=== PATIENT | female | born 1935 | race Caucasian/White ===

== ENCOUNTER 2017-03-03 16:10 | Inpatient (IN) | payer MEDICARE, OTHER ==
[~2017-03-03] VITALS: Ht 170.2 cm; Wt 71.7 kg
[2017-03-03 17:46] LABS: BASOPHILS % (AUTO) 0.5 % (0.0-2.0); EOSINOPHILS # (AUTO) 0.1 /CMM (0.0-0.7); EOSINOPHILS % (AUTO) 2.4 % (0.0-6.0); HEMATOCRIT 38 % (33-45); LYMPHOCYTES # (AUTO) 2.1 /CMM (0.8-4.8); LYMPHOCYTES % (AUTO) 34.2 % (20.0-44.0); MEAN CORPUSCULAR HEMOGLOBIN 34 PG (26.0-33.0); MEAN CORPUSCULAR HGB CONC 34 g/dl (31.0-36.0); MEAN CORPUSCULAR VOLUME 98 fL (82-100); MONOCYTES # (AUTO) 0.7 /CMM (0.1-1.30); MONOCYTES % (AUTO) 10.8 % (2.0-12.0); NEUTROPHILS # (AUTO) 3.3 /CMM (1.8-8.9); NEUTROPHILS % (AUTO) 52.1 % (43.0-81.0); PLATELET COUNT (AUTO) 292 /CMM (150-450); RED BLOOD CELL COUNT(AUTO) 3.87 MIL/uL (4.0-5.2); WHITE BLOOD COUNT (AUTO) 6.2 K/uL (4.3-11.0)
[2017-03-03 17:58] LABS: CALCIUM, SERUM 9.7 mg/dL (8.5-10.1); CARBON DIOXIDE 30 mmol/L (21-32); CHLORIDE 103 mmol/L (98-107); CREATININE 1.4 mg/dL (0.6-1.3); GLUCOSE 122 mg/dL (74-106); POTASSIUM 4.2 mmol/L (3.5-5.1); SODIUM SERUM 139 mmol/L (136-145); UREA NITROGEN, BLOOD 17 mg/dL (7-18)
[2017-03-03 18:02] LABS: ALANINE AMINOTRANSFERASE 13 U/L (12-78); ALBUMIN 3.6 g/dL (3.4-5.0); ALCOHOL, BLOOD < 3 mg/dL (0-0); ALKALINE PHOSPHATASE 91 U/L (46-116); ASPARTATE AMINOTRANSFERASE 17 U/L (15-37); BILIRUBIN,DIRECT 0.1 mg/dL (0.0-0.2); BILIRUBIN,TOTAL 0.4 mg/dL (0.2-1.0); SALICYLATE 0.3 mg/dL (2.8-20.0); TOTAL PROTEIN, SERUM 8.1 g/dL (6.4-8.2)
[2017-03-03 18:03] LABS: ACETAMINOPHEN < 2 ug/ml (10-30)
[2017-03-03 18:10] LABS: INR 0.98 (0.87-1.13); PROTHROMBIN TIME 10.2 SECS (9.5-12.7)
[2017-03-03 18:50] LABS: APPEARANCE,URINE Slightly Cloudy (CLEAR); BILIRUBIN,URINE Negative (NEGATIVE); BLOOD, URINE Negative Ery/uL (NEGATIVE); COLOR,URINE Yellow (YELLOW); KETONES,URINE Negative (NEGATIVE); LEUKOCYTE ESTERASE ,URINE Trace (NEGATIVE); NITRITE, URINE Negative (NEGATIVE); PH,URINE 7.5 (5.0-8.0); PROTEIN,URINE Negative (NEGATIVE); UGLUCOSE Negative (NEGATIVE); UROBILINOGEN,URINE 0.2 EU/dL (0.2)
[2017-03-03 19:01] LABS: BACTERIA,URINE Many /HPF (None Seen); RBC,URINE 0-2 /HPF (0-2); SQUAMOUS EPITHELIAL CELL,UR Few /HPF (None Seen)
[2017-03-03] MEDS ORDERED: BENA20TA2 PO (20:22)
[2017-03-03] MEDS ORDERED: ATOR20TA PO (20:22)
[2017-03-03] MEDS ORDERED: OMEG1CAP13 PO (20:22)
[2017-03-03] MEDS ORDERED: LEVO75TA7 PO (20:22)
[2017-03-03] MEDS ORDERED: DONE5TAB34 PO (20:22)
[2017-03-03] MEDS ORDERED: ASPI-605 PO (20:22)
[2017-03-03] MEDS ORDERED: QUET50TA PO (20:22)
[2017-03-03] MEDS ORDERED: AMLO5TAB2 PO (20:22)
[2017-03-03] MEDS ORDERED: METF500T4 PO (20:22)
[2017-03-03] MEDS ORDERED: FLUO-120 PO (20:22)
[2017-03-03] MEDS ORDERED: RISP1TAB27 PO (21:10)
[2017-03-03 21:23] VITALS: BP 187/99
[2017-03-03] MEDS ORDERED: MAGNESIUM HYDROXIDE 30 ML UDC PO PRN (21:30)
[2017-03-03] MEDS ORDERED: MAG HYDROX/AL HYDROX/SIMETH 30 ML UDC PO PRN (21:30)
[2017-03-03] MEDS ORDERED: ACETAMINOPHEN 325 MG TABLET PO PRN (21:30)
[2017-03-03] MEDS ORDERED: LORAZEPAM 0.5 MG TABLET PO PRN (21:30)
[2017-03-03] MEDS ORDERED: hydrALAZINE HCL 10 MG TABLET ONE (22:25)
[2017-03-03] MEDS ORDERED: hydrALAZINE HCL 10 MG TABLET PO ONE (22:30)
[2017-03-04 08:18] VITALS: BP 150/77
[2017-03-04 15:53] VITALS: BP 146/80
[2017-03-04] MEDS: FLUOXETINE HCL 20 MG CAPSULE PO SCH (16:58)
[2017-03-04 19:41] VITALS: BP 125/49
[2017-03-04] MEDS: QUETIAPINE FUMARATE 25 MG TABLET PO SCH (21:18)
[2017-03-04] MEDS: DONEPEZIL 5 MG TABLET PO SCH (21:20)
[2017-03-05 06:28] LABS: BASOPHILS % (AUTO) 0.3 % (0.0-2.0); EOSINOPHILS # (AUTO) 0.2 /CMM (0.0-0.7); EOSINOPHILS % (AUTO) 2.6 % (0.0-6.0); HEMATOCRIT 37 % (33-45); HEMOGLOBIN 12.5 g/dL (11.5-14.8); LYMPHOCYTES # (AUTO) 2.1 /CMM (0.8-4.8); LYMPHOCYTES % (AUTO) 27.1 % (20.0-44.0); MEAN CORPUSCULAR HEMOGLOBIN 34 PG (26.0-33.0); MEAN CORPUSCULAR HGB CONC 34 g/dl (31.0-36.0); MEAN CORPUSCULAR VOLUME 99 fL (82-100); MONOCYTES # (AUTO) 0.6 /CMM (0.1-1.30); MONOCYTES % (AUTO) 7.6 % (2.0-12.0); NEUTROPHILS # (AUTO) 4.9 /CMM (1.8-8.9); NEUTROPHILS % (AUTO) 62.4 % (43.0-81.0); PLATELET COUNT (AUTO) 266 /CMM (150-450); RDW COEFFICIENT OF VARIATION 14.2 (11.5-15.0); RED BLOOD CELL COUNT(AUTO) 3.73 MIL/uL (4.0-5.2); WHITE BLOOD COUNT (AUTO) 7.9 K/uL (4.3-11.0)
[2017-03-05 06:44] LABS: CHOLESTEROL 166 mg/dL (<200); HDL CHOLESTEROL 77 mg/dL (40-60); LDL 77 mg/dL (0-99); TRIGLYCERIDES 70 mg/dL (30-150)
[2017-03-05 06:46] LABS: ALANINE AMINOTRANSFERASE 18 U/L (12-78); ALBUMIN 3.1 g/dL (3.4-5.0); ALKALINE PHOSPHATASE 72 U/L (46-116); ASPARTATE AMINOTRANSFERASE 18 U/L (15-37); BILIRUBIN,TOTAL 0.4 mg/dL (0.2-1.0); CALCIUM, SERUM 9.4 mg/dL (8.5-10.1); CARBON DIOXIDE 30 mmol/L (21-32); CHLORIDE 106 mmol/L (98-107); CREATININE 0.7 mg/dL (0.6-1.3); GLUCOSE 126 mg/dL (74-106); POTASSIUM 4.2 mmol/L (3.5-5.1); SODIUM SERUM 140 mmol/L (136-145); TOTAL PROTEIN, SERUM 6.9 g/dL (6.4-8.2); UREA NITROGEN, BLOOD 27 mg/dL (7-18)
[2017-03-05 06:59] LABS: VALPROIC ACID < 3 ug/mL (50-100)
[2017-03-05 08:11] VITALS: BP 125/72
[2017-03-05] MEDS ORDERED: FLUOXETINE HCL 20 MG CAPSULE PO SCH (09:00)
[2017-03-05] MEDS: FLUOXETINE HCL 20 MG CAPSULE PO SCH (09:00)
[2017-03-05] MEDS: ATORVASTATIN 10 MG TABLET PO SCH (09:01)
[2017-03-05] MEDS: ASPIRIN EC 81 MG TABLET.DR PO SCH (09:01)
[2017-03-05] MEDS: AMLODIPINE BESYLATE 5 MG TABLET PO SCH (09:02)
[2017-03-05] MEDS: BENAZEPRIL HCL 20 MG TABLET PO SCH (09:02)
[2017-03-05] MEDS: LEVOTHYROXINE SODIUM 75 MCG TABLET PO SCH (09:04)
[2017-03-05] MEDS: METFORMIN 500 MG TABLET PO SCH (09:43)
[2017-03-05 15:49] VITALS: BP 133/99
[2017-03-05] MEDS: QUETIAPINE FUMARATE 25 MG TABLET PO SCH (17:11)
[2017-03-05 20:52] VITALS: BP 96/57
[2017-03-05] MEDS: DONEPEZIL 5 MG TABLET PO SCH (21:54)
[2017-03-06 07:18] LABS: APPEARANCE,URINE CLOUDY (CLEAR); BILIRUBIN,URINE NEGATIVE (NEGATIVE); BLOOD, URINE NEGATIVE Ery/uL (NEGATIVE); COLOR,URINE YELLOW (YELLOW); KETONES,URINE NEGATIVE (NEGATIVE); LEUKOCYTE ESTERASE ,URINE 1+ (NEGATIVE); NITRITE, URINE POSITIVE (NEGATIVE); PH,URINE 7.5 (5.0-8.0); PROTEIN,URINE NEGATIVE (NEGATIVE); UGLUCOSE NEGATIVE (NEGATIVE); UROBILINOGEN,URINE 0.2 EU/dL (0.2)
[2017-03-06 08:00] VITALS: BP 138/68
[2017-03-06] MEDS: ATORVASTATIN 10 MG TABLET PO SCH (08:02)
[2017-03-06] MEDS: AMLODIPINE BESYLATE 5 MG TABLET PO SCH (08:03)
[2017-03-06] MEDS: METFORMIN 500 MG TABLET PO SCH (08:03)
[2017-03-06] MEDS: BENAZEPRIL HCL 20 MG TABLET PO SCH (08:03)
[2017-03-06] MEDS: LEVOTHYROXINE SODIUM 75 MCG TABLET PO SCH (08:04)
[2017-03-06] MEDS: FLUOXETINE HCL 20 MG CAPSULE PO SCH (08:04)
[2017-03-06] MEDS: ASPIRIN EC 81 MG TABLET.DR PO SCH (08:04)
[2017-03-06 09:00] LABS: RBC,URINE NONE SEEN /HPF (0-2)
[2017-03-06 09:01] LABS: BACTERIA,URINE 2+ /HPF (None Seen); SQUAMOUS EPITHELIAL CELL,UR Few /HPF (None Seen); YEAST,URINE None Seen /HPF (None Seen)
[2017-03-06 16:08] VITALS: BP 138/74
[2017-03-06] MEDS: QUETIAPINE FUMARATE 25 MG TABLET PO SCH (17:03)
[2017-03-06 19:45] VITALS: BP 128/57
[2017-03-06] MEDS: DONEPEZIL 5 MG TABLET PO SCH (21:15)
[2017-03-07 08:00] VITALS: BP 114/62
[2017-03-07] MEDS: LEVOTHYROXINE SODIUM 75 MCG TABLET PO SCH (09:20)
[2017-03-07] MEDS: ATORVASTATIN 10 MG TABLET PO SCH (09:20)
[2017-03-07] MEDS: METFORMIN 500 MG TABLET PO SCH (09:20)
[2017-03-07] MEDS: BENAZEPRIL HCL 20 MG TABLET PO SCH (09:21)
[2017-03-07] MEDS: AMLODIPINE BESYLATE 5 MG TABLET PO SCH (09:21)
[2017-03-07] MEDS: FLUOXETINE HCL 20 MG CAPSULE PO SCH (09:21)
[2017-03-07] MEDS: ASPIRIN EC 81 MG TABLET.DR PO SCH (09:21)
[2017-03-07 16:00] VITALS: BP 110/55
[2017-03-07] MEDS: QUETIAPINE FUMARATE 25 MG TABLET PO SCH (17:38)
[2017-03-07 20:00] VITALS: BP 107/53
[2017-03-07] MEDS ORDERED: IV NS 0.9% 500 ML IV ONE (22:00)
[2017-03-08 08:00] VITALS: BP 105/57
[2017-03-08 08:07] VITALS: BP 105/57
[2017-03-08] MEDS: METFORMIN 500 MG TABLET PO SCH (08:47)
[2017-03-08] MEDS: FLUOXETINE HCL 20 MG CAPSULE PO SCH (08:47)
[2017-03-08] MEDS: ASPIRIN EC 81 MG TABLET.DR PO SCH (08:48)
[2017-03-08] MEDS: ATORVASTATIN 10 MG TABLET PO SCH (08:48)
[2017-03-08] MEDS: LEVOTHYROXINE SODIUM 75 MCG TABLET PO SCH (08:48)
[2017-03-08] MEDS: BENAZEPRIL HCL 20 MG TABLET PO SCH (08:49)
[2017-03-08] MEDS: AMLODIPINE BESYLATE 5 MG TABLET PO SCH (08:49)
[2017-03-08 16:06] VITALS: BP 113/66
[2017-03-08] MEDS: QUETIAPINE FUMARATE 25 MG TABLET PO SCH (17:24)
[2017-03-08 20:00] VITALS: BP 103/58
[2017-03-08] MEDS: DONEPEZIL 5 MG TABLET PO SCH ×2 (21:46)
[2017-03-08] MEDS ORDERED: LEVOFLOXACIN (500MG) 500 MG TABLET PO SCH (22:00)
[2017-03-08] MEDS: TEMAZEPAM 7.5 MG CAPSULE PO PRN (22:12)
[2017-03-09 08:04] VITALS: BP 141/87
[2017-03-09] MEDS: BENAZEPRIL HCL 20 MG TABLET PO SCH ×2 (09:00→12:38)
[2017-03-09] MEDS: AMLODIPINE BESYLATE 5 MG TABLET PO SCH ×2 (09:00→12:38)
[2017-03-09] MEDS: LEVOTHYROXINE SODIUM 75 MCG TABLET PO SCH (09:18)
[2017-03-09] MEDS: METFORMIN 500 MG TABLET PO SCH (09:19)
[2017-03-09] MEDS: ATORVASTATIN 10 MG TABLET PO SCH (09:19)
[2017-03-09] MEDS: ASPIRIN EC 81 MG TABLET.DR PO SCH (09:19)
[2017-03-09] MEDS: FLUOXETINE HCL 20 MG CAPSULE PO SCH (09:19)
[2017-03-09] MEDS: CEPHALEXIN MONOHYDRATE 250 MG CAPSULE PO SCH ×2 (12:36→17:42)
[2017-03-09] MEDS: GUAIFENESIN/D-METHORPHAN HB 5 ML UDC PO PRN ×2 (12:36→17:44)
[2017-03-09 16:04] VITALS: BP 111/66
[2017-03-09] MEDS: QUETIAPINE FUMARATE 25 MG TABLET PO SCH (17:42)
[2017-03-09 20:00] VITALS: BP 103/50
[2017-03-09] MEDS: DONEPEZIL 5 MG TABLET PO SCH (21:37)
[2017-03-09] MEDS: TEMAZEPAM 7.5 MG CAPSULE PO PRN (21:38)
[2017-03-09] MEDS ORDERED: LEVOFLOXACIN (250MG) 250 MG TABLET PO SCH (22:00)
[2017-03-10] MEDS: CEPHALEXIN MONOHYDRATE 250 MG CAPSULE PO SCH ×4 (00:43→17:44)
[2017-03-10 08:00] VITALS: BP 111/63
[2017-03-10] MEDS: FLUOXETINE HCL 20 MG CAPSULE PO SCH (08:44)
[2017-03-10] MEDS: METFORMIN 500 MG TABLET PO SCH (08:44)
[2017-03-10] MEDS: LEVOTHYROXINE SODIUM 75 MCG TABLET PO SCH (08:44)
[2017-03-10] MEDS: ATORVASTATIN 10 MG TABLET PO SCH (08:44)
[2017-03-10] MEDS: ASPIRIN EC 81 MG TABLET.DR PO SCH (08:44)
[2017-03-10] MEDS: BENAZEPRIL HCL 20 MG TABLET PO SCH (08:45)
[2017-03-10] MEDS: AMLODIPINE BESYLATE 5 MG TABLET PO SCH (08:45)
[2017-03-10 16:06] VITALS: BP 100/69
[2017-03-10] MEDS: QUETIAPINE FUMARATE 25 MG TABLET PO SCH (17:44)
[2017-03-10 19:46] VITALS: BP 90/53
[2017-03-10] MEDS: DONEPEZIL 5 MG TABLET PO SCH (21:11)
[2017-03-11 03:41] VITALS: BP 104/61
[2017-03-11] MEDS: CEPHALEXIN MONOHYDRATE 250 MG CAPSULE PO SCH ×2 (06:00)
[2017-03-11 08:00] VITALS: BP 114/64
[2017-03-11] MEDS: ASPIRIN EC 81 MG TABLET.DR PO SCH (09:11)
[2017-03-11] MEDS: METFORMIN 500 MG TABLET PO SCH (09:11)
[2017-03-11] MEDS: LEVOTHYROXINE SODIUM 75 MCG TABLET PO SCH (09:11)
[2017-03-11] MEDS: FLUOXETINE HCL 20 MG CAPSULE PO SCH (09:11)
[2017-03-11] MEDS: CEPHALEXIN MONOHYDRATE 500 MG CAPSULE PO SCH ×3 (09:11→23:53)
[2017-03-11] MEDS: ATORVASTATIN 10 MG TABLET PO SCH (09:11)
[2017-03-11] MEDS: AMLODIPINE BESYLATE 5 MG TABLET PO SCH (09:12)
[2017-03-11] MEDS: BENAZEPRIL HCL 20 MG TABLET PO SCH (09:12)
[2017-03-11 16:00] VITALS: BP 144/78
[2017-03-11] MEDS: QUETIAPINE FUMARATE 25 MG TABLET PO SCH (17:09)
[2017-03-11] MEDS: DONEPEZIL 5 MG TABLET PO SCH (21:11)
[2017-03-11 21:44] VITALS: BP 108/63
[2017-03-12] MEDS ORDERED: CEPHALEXIN MONOHYDRATE 500 MG CAPSULE PO ONE (05:37)
[2017-03-12] MEDS: CEPHALEXIN MONOHYDRATE 500 MG CAPSULE PO SCH ×4 (05:53→23:02)
[2017-03-12 08:00] VITALS: BP 138/73
[2017-03-12] MEDS: FLUOXETINE HCL 20 MG CAPSULE PO SCH (08:31)
[2017-03-12] MEDS: AMLODIPINE BESYLATE 5 MG TABLET PO SCH (08:31)
[2017-03-12] MEDS: METFORMIN 500 MG TABLET PO SCH (08:31)
[2017-03-12] MEDS: LEVOTHYROXINE SODIUM 75 MCG TABLET PO SCH (08:31)
[2017-03-12] MEDS: ASPIRIN EC 81 MG TABLET.DR PO SCH (08:31)
[2017-03-12] MEDS: BENAZEPRIL HCL 20 MG TABLET PO SCH (08:32)
[2017-03-12] MEDS: ATORVASTATIN 10 MG TABLET PO SCH (12:01)
[2017-03-12 16:01] VITALS: BP 138/87
[2017-03-12] MEDS: QUETIAPINE FUMARATE 25 MG TABLET PO SCH (17:02)
[2017-03-12 19:42] VITALS: BP 127/73
[2017-03-12] MEDS: DONEPEZIL 5 MG TABLET PO SCH (21:13)
[2017-03-13] MEDS: CEPHALEXIN MONOHYDRATE 500 MG CAPSULE PO SCH ×3 (05:14→17:06)
[2017-03-13 08:00] VITALS: BP 132/72
[2017-03-13] MEDS: FLUOXETINE HCL 20 MG CAPSULE PO SCH (08:11)
[2017-03-13] MEDS: METFORMIN 500 MG TABLET PO SCH (08:11)
[2017-03-13] MEDS: BENAZEPRIL HCL 20 MG TABLET PO SCH (08:11)
[2017-03-13] MEDS: ATORVASTATIN 10 MG TABLET PO SCH (08:11)
[2017-03-13] MEDS: ASPIRIN EC 81 MG TABLET.DR PO SCH (08:11)
[2017-03-13] MEDS: LEVOTHYROXINE SODIUM 75 MCG TABLET PO SCH (08:11)
[2017-03-13] MEDS: AMLODIPINE BESYLATE 5 MG TABLET PO SCH (08:12)
[2017-03-13 15:49] VITALS: BP 132/78
[2017-03-13] MEDS: QUETIAPINE FUMARATE 25 MG TABLET PO SCH (17:06)
== END 2017-03-13 18:50 | DRG 885 ==
LOC: ER 16:12 → GPS 20:56
PROVIDERS: ADMIT Psychiatry & Neurology Psychiatry; ATTEND Nurse Practitioner Acute Care
DX: F33.3 Major depressive disorder, recurrent, severe with psychotic symptoms (principal); F02.80 Dementia in other diseases classified elsewhere, unspecified severity, without behavioral disturbance, psychotic disturbance, mood disturbance, and anxiety; N17.0 Acute kidney failure with tubular necrosis; E11.65 Type 2 diabetes mellitus with hyperglycemia; N39.0 Urinary tract infection, site not specified; R45.851 Suicidal ideations; G30.9 Alzheimer's disease, unspecified; B96.20 Unspecified Escherichia coli [E. coli] as the cause of diseases classified elsewhere; I10 Essential (primary) hypertension; I25.10 Atherosclerotic heart disease of native coronary artery without angina pectoris; Z79.899 Other long term (current) drug therapy; Z79.84 Long term (current) use of oral hypoglycemic drugs
CPT/HCPCS: 36415; 71010-TC; 80048-TC; 80053-TC; 80061-TC; 80076-TC; 80164-TC; 80305; 81000-TC; 82962-TC; 85025-TC; 85730-TC; 87081-TC; 87086-TC; 87186-TC; G0480; J7040

== ENCOUNTER 2017-06-06 14:01 | Inpatient (IN) | payer MEDICARE, MEDICAID ==
[~2017-06-06] VITALS: Ht 170.2 cm; Wt 73.0 kg
[~2017-06-06 14:01] MED LIST: AMLO5TAB7 PO; ASPI-605 PO; ATOR20TA PO; BENA20TA9 PO; DONE5TAB34 PO; FLUO-120 PO; LEVO75TA7 PO; METF-440 PO; OMEG1CAP13 PO; QUET50TA PO
[2017-06-06] MEDS ORDERED: ALBU2.5V38 IH (14:21)
[2017-06-06] MEDS ORDERED: BISA10SU8 RC (14:21)
[2017-06-06] MEDS ORDERED: ATOR10TA PO (14:21)
[2017-06-06] MEDS ORDERED: LEVO75TA7 PO (14:21)
[2017-06-06] MEDS ORDERED: MAGN400O6 PO (14:21)
[2017-06-06] MEDS ORDERED: ASPI-1152 PO (14:21)
[2017-06-06] MEDS ORDERED: DONE5TAB34 PO (14:21)
[2017-06-06] MEDS ORDERED: ACET-868 PO (14:21)
[2017-06-06] MEDS ORDERED: AMLO5TAB4 PO (14:21)
[2017-06-06] MEDS ORDERED: BENA40TA67 PO (14:21)
[2017-06-06] MEDS ORDERED: BLOO-668 IN (14:21)
[2017-06-06] MEDS ORDERED: FLUO20CA36 PO (14:21)
[2017-06-06] MEDS ORDERED: GUAI5SYR PO (14:21)
[2017-06-06 14:54] LABS: BASOPHILS # (AUTO) 0.1 /CMM (0.0-0.2); EOSINOPHILS % (AUTO) 4.7 % (0.0-6.0); HEMATOCRIT 38 % (33-45); HEMOGLOBIN 12.6 g/dL (11.5-14.8); LYMPHOCYTES # (AUTO) 2.4 /CMM (0.8-4.8); LYMPHOCYTES % (AUTO) 35.5 % (20.0-44.0); MEAN CORPUSCULAR HGB CONC 33 g/dl (31.0-36.0); MEAN CORPUSCULAR VOLUME 99 fL (82-100); MONOCYTES # (AUTO) 0.5 /CMM (0.1-1.30); MONOCYTES % (AUTO) 7.6 % (2.0-12.0); NEUTROPHILS # (AUTO) 3.4 /CMM (1.8-8.9); NEUTROPHILS % (AUTO) 51.2 % (43.0-81.0); PLATELET COUNT (AUTO) 300 /CMM (150-450); RDW COEFFICIENT OF VARIATION 12.9 (11.5-15.0); RED BLOOD CELL COUNT(AUTO) 3.82 MIL/uL (4.0-5.2); WHITE BLOOD COUNT (AUTO) 6.7 K/uL (4.3-11.0)
[2017-06-06 15:02] LABS: CALCIUM, SERUM 9.4 mg/dL (8.5-10.1); CARBON DIOXIDE 24 mmol/L (21-32); CHLORIDE 103 mmol/L (98-107); GLUCOSE 221 mg/dL (74-106); POTASSIUM 4.1 mmol/L (3.5-5.1); SODIUM SERUM 137 mmol/L (136-145); UREA NITROGEN, BLOOD 17 mg/dL (7-18)
[2017-06-06 15:15] LABS: ACETAMINOPHEN < 2 ug/ml (10-30); ALANINE AMINOTRANSFERASE 15 U/L (12-78); ALBUMIN 3.2 g/dL (3.4-5.0); ALCOHOL, BLOOD < 3 mg/dL (0-0); ALKALINE PHOSPHATASE 97 U/L (46-116); ASPARTATE AMINOTRANSFERASE 17 U/L (15-37); BILIRUBIN,DIRECT 0.1 mg/dL (0.0-0.2); BILIRUBIN,TOTAL 0.4 mg/dL (0.2-1.0); SALICYLATE 0.9 mg/dL (2.8-20.0); TOTAL PROTEIN, SERUM 7.7 g/dL (6.4-8.2)
[2017-06-06 15:26] LABS: BILIRUBIN,URINE Negative (NEGATIVE); BLOOD, URINE Negative Ery/uL (NEGATIVE); COLOR,URINE Yellow (YELLOW); KETONES,URINE Negative (NEGATIVE); LEUKOCYTE ESTERASE ,URINE Negative (NEGATIVE); NITRITE, URINE Negative (NEGATIVE); PH,URINE 5.5 (5.0-8.0); PROTEIN,URINE Negative (NEGATIVE); UGLUCOSE Negative (NEGATIVE); UROBILINOGEN,URINE 0.2 EU/dL (0.2)
[2017-06-06 15:27] LABS: APPEARANCE,URINE SLIGHTLY HAZY (CLEAR)
[2017-06-06 15:30] LABS: BACTERIA,URINE None seen /HPF (None Seen); RBC,URINE 0-2 /HPF (0-2); SQUAMOUS EPITHELIAL CELL,UR Few /HPF (None Seen)
[2017-06-06 15:31] LABS: URINE AMORPHOUS URATE Moderate /HPF (None Seen)
--- NOTE | 2017-06-06 16:50 | NUR ---
KALEB AT BEDSIDE FOR EVAL.
--- NOTE | 2017-06-06 17:12 | NUR ---
REPORT GIVEN TO RONY BUCHANAN FOR ZOILA
--- NOTE | 2017-06-06 17:40 | NUR ---
GPS/RN PATIENT ADMITTED FROM [facility] ON A 5150 HOLD FOR DTO AND GD, UNDER THE CARE OF DR ARCHULETA AND NAEEM MANUEL. PER HOLD PATIENT WAS AGGRESSIVE AND UNPREDICTABLE AT FACILITY, CURSING AND STRIKING OUT AT STAFF. UPON FACE TO FACE ASSESSMENT PATIENT IS ALERT X 3, AMBULATORY, STABLE CONDITION. SHE IS ANXIOUS, LABILE, SCREAMING AND SHOUTING PROFANITIES,AGGRESSIVE, COMBATIVE AND UNCOOPERATIVE WITH STAFF. PATIENT DENIES ANY SI AT THIS TIME, REFUSED SKIN ASSESSMENT,REFUSED PIC TO BE TAKEN OF FACE, REFUSED TO SIGN ANY ADMISSION PAPER WORK AND SELECTIVE WITH ANSWERING QUESTIONS. BOTH DR'S HAVE BEEN NOTIFIED OF ADMISSION, LEFT MESSAGE FOR NAEEM MANUEL WITH [facility] [employer] [facility] FOR NEED TO RECONCILE MEDS IN SYSTEM, AWAITING CALL BACK. PATIENTS DAUGHTER MATTHEW HAS BEEN NOTIFIED, WILL CONTINUE TO MONITOR Q 15 MIN FOR SAFETY AND BEHAVIOR.
[2017-06-06] MEDS ORDERED: TEMAZEPAM 7.5 MG CAPSULE PO PRN (18:00)
[2017-06-06] MEDS ORDERED: MAG HYDROX/AL HYDROX/SIMETH 30 ML UDC PO PRN (18:00)
[2017-06-06] MEDS ORDERED: ACETAMINOPHEN 325 MG TABLET PO PRN (18:00)
[2017-06-06] MEDS ORDERED: MAGNESIUM HYDROXIDE 30 ML UDC PO PRN (18:00)
[2017-06-06] MEDS ORDERED: clonazePAM 0.5 MG TABLET PO PRN (18:00)
--- NOTE | 2017-06-06 19:30 | NUR ---
GPS RN NOTE, RECEIVED PATIENT AWAKE AND IN BED, NO S/S OR COMPLAINTS OF PAIN AT THIS TIME. PATIENT IS DISPLAYING NO S/S OF APPARENT DISTRESS AT THIS TIME. PATIENT BREATHING IS UNLABORED WITH EQUAL RISE AND FALL OF THE CHEST. PATIENT IS ALERT AND ORIENTED X 1-2 ON ROOM AIR WITH A SPO2 OF 99%. PATIENT IS SERBIAN SPEAKING ONLY. PATIENT IS SELECTIVE WITH MEDICATION, ANXIOUS AT TIMES, CONFUSED, AND NEEDS REORIENTATION. PATIENT DENIES SUICIDE IDEATIONS AND HOMICIDAL IDEATIONS AT THIS TIME. PATIENT ASSISTED WITH TURNING AND REPOSITIONING Q2HR AND PRN FOR COMFORT AND CIRCULATION. PATIENT HAS NO NEEDS AT THIS TIME. PATIENT EDUCATED ON THE USE OF THE CALL DOLAN. PATIENT SIDE RAILS ARE UP X 2, BED IS LOCKED AND LOW, AND I WILL CONTINUE TO MONITOR THIS PATIENT Q 15 MIN WITH THE HELP OF STAFF.
[2017-06-06 20:00] VITALS: BP 140/72
--- NOTE | 2017-06-06 20:49 | NUR ---
GPS RN NOTE, PATIENT NEEDS A MEDICATION RECONCILIATION. PAGED [facility] AND INFORMED CHRISTOPHER PRATT OF MY FINDINGS. CHRISTOPHER PRATT SAID HE WILL RECONCILE THIS PATIENT'S MEDICATIONS. WILL CONTINUE TO MONITOR THIS PATIENT.
--- NOTE | 2017-06-07 02:50 | NUR ---
GPS RN NOTE, PATIENT HAS REFUSED ANY AND ALL PRN MEDICATIONS ORDERED FOR THIS PATIENT. OFFERED RESTORIL AND ATIVAN THREE TIMES BUT PATIENT STILL REFUSED AFOREMENTIONED MEDICATION STATING, " NO I DON'T WANT MEDICATION, I JUST WANT TO LEAVE AND GO TO [facility] ". EDUCATED PATIENT ON THE RISKS AND BENEFITS OF REFUSING MEDICATION THAT WOULD HELP HER SLEEP. WILL CONTINUE TO MONITOR THIS PATIENT.
[2017-06-07] MEDS ORDERED: BISACODYL SUPP (10 MG) 10 MG/SUPP.RECT SUPP.RECT RC PRN (03:00)
[2017-06-07] MEDS ORDERED: GUAIFENESIN/D-METHORPHAN HB 5 ML UDC PO PRN (03:00)
[2017-06-07] MEDS ORDERED: ACETAMINOPHEN 325 MG TABLET PO PRN (03:00)
[2017-06-07] MEDS ORDERED: MAGNESIUM HYDROXIDE 30 ML UDC PO PRN (03:00)
[2017-06-07] MEDS ORDERED: ALBUTEROL FS 2.5 MG/3 ML VIAL.NEB IH PRN (03:00)
[2017-06-07] MEDS ORDERED: DEXTROSE 50%-WATER 50 ML DISP.SYRIN IV PRN (03:30)
[2017-06-07] MEDS: BLOOD SUGAR DIAGNOSTIC 1 EACH STRIP IN SCH ×4 (07:30→21:42)
--- NOTE | 2017-06-07 07:30 | NUR ---
RN-CO: DR LOYD ORDERED 1:1 SITTER IN AM ONLY FOR BEING AWOL RISK.
[2017-06-07 07:38] LABS: ALANINE AMINOTRANSFERASE 26 U/L (12-78); ALBUMIN 3.6 g/dL (3.4-5.0); ALKALINE PHOSPHATASE 85 U/L (46-116); ASPARTATE AMINOTRANSFERASE 28 U/L (15-37); BILIRUBIN,TOTAL 0.7 mg/dL (0.2-1.0); CALCIUM, SERUM 9.5 mg/dL (8.5-10.1); CARBON DIOXIDE 26 mmol/L (21-32); CHLORIDE 103 mmol/L (98-107); CREATININE 0.6 mg/dL (0.6-1.3); GLUCOSE 142 mg/dL (74-106); POTASSIUM 3.9 mmol/L (3.5-5.1); SODIUM SERUM 139 mmol/L (136-145); TOTAL PROTEIN, SERUM 8.1 g/dL (6.4-8.2); UREA NITROGEN, BLOOD 17 mg/dL (7-18)
[2017-06-07 08:00] VITALS: BP 148/92
[2017-06-07 08:16] LABS: CHOLESTEROL 177 mg/dL (<200); HDL CHOLESTEROL 85 mg/dL (40-60); LDL 84 mg/dL (0-99); TRIGLYCERIDES 76 mg/dL (30-150)
[2017-06-07] MEDS: ASPIRIN EC 81 MG TABLET.DR PO SCH (08:22)
[2017-06-07] MEDS: BENAZEPRIL HCL 10 MG TABLET PO SCH (08:22)
[2017-06-07] MEDS: LEVOTHYROXINE SODIUM 75 MCG TABLET PO SCH (08:22)
[2017-06-07] MEDS: AMLODIPINE BESYLATE 5 MG TABLET PO SCH (08:23)
[2017-06-07] MEDS: INSULIN REGULAR, HUMAN 100 UNIT/ML 3 ML VIAL SQ PRN ×2 (12:11→21:49)
[2017-06-07] MEDS: Fluoxetine 10 mg capsule PO SCH (14:35)
[2017-06-07 16:00] VITALS: BP 111/60
--- NOTE | 2017-06-07 16:34 | NUR ---
Initial Discharge Plan: Pt resides at the [facility], [facility] [address] [facility] [address]; . SW contacted the facility to inquire if pt would be returning to the facility, however was unable to speak to anyone; a detailed message was left asking for a callback. SW will follow up to ensure pt is safely and properly discharged.
[2017-06-07 20:00] VITALS: BP 116/70
[2017-06-07] MEDS: DONEPEZIL 5 MG TABLET PO SCH (21:36)
[2017-06-07] MEDS: ATORVASTATIN 10 MG TABLET PO SCH (21:37)
[2017-06-07] MEDS: QUETIAPINE FUMARATE 25 MG TABLET PO SCH (21:39)
[2017-06-08] MEDS: BLOOD SUGAR DIAGNOSTIC 1 EACH STRIP IN SCH ×4 (07:37→22:09)
[2017-06-08] MEDS: LEVOTHYROXINE SODIUM 75 MCG TABLET PO SCH (07:51)
[2017-06-08] MEDS: Fluoxetine 10 mg capsule PO SCH (08:32)
[2017-06-08] MEDS: AMLODIPINE BESYLATE 5 MG TABLET PO SCH (08:32)
[2017-06-08] MEDS: ASPIRIN EC 81 MG TABLET.DR PO SCH (08:32)
[2017-06-08] MEDS: BENAZEPRIL HCL 10 MG TABLET PO SCH (08:32)
[2017-06-08 08:45] VITALS: BP 146/71
[2017-06-08 16:00] VITALS: BP 114/68
[2017-06-08] MEDS: INSULIN REGULAR, HUMAN 100 UNIT/ML 3 ML VIAL SQ PRN (17:11)
[2017-06-08 20:00] VITALS: BP 113/56
[2017-06-08] MEDS: DONEPEZIL 5 MG TABLET PO SCH (22:09)
[2017-06-08] MEDS: QUETIAPINE FUMARATE 25 MG TABLET PO SCH (22:09)
[2017-06-08] MEDS: ATORVASTATIN 10 MG TABLET PO SCH (22:09)
[2017-06-09] MEDS: BLOOD SUGAR DIAGNOSTIC 1 EACH STRIP IN SCH ×4 (07:30→22:05)
[2017-06-09 08:00] VITALS: BP 134/67
[2017-06-09] MEDS ORDERED: QUETIAPINE FUMARATE 25 MG TABLET PO SCH (08:00)
[2017-06-09] MEDS: AMLODIPINE BESYLATE 5 MG TABLET PO SCH (08:32)
[2017-06-09] MEDS: ASPIRIN EC 81 MG TABLET.DR PO SCH (08:32)
[2017-06-09] MEDS: FLUOXETINE HCL 20 MG CAPSULE PO SCH (08:33)
[2017-06-09] MEDS: BENAZEPRIL HCL 10 MG TABLET PO SCH (08:34)
[2017-06-09] MEDS: LEVOTHYROXINE SODIUM 75 MCG TABLET PO SCH (08:34)
[2017-06-09] MEDS: INSULIN REGULAR, HUMAN 100 UNIT/ML 3 ML VIAL SQ PRN ×2 (12:30→22:06)
[2017-06-09 15:51] VITALS: BP 100/59
[2017-06-09 20:30] VITALS: BP 132/66
[2017-06-09] MEDS: ATORVASTATIN 10 MG TABLET PO SCH (21:49)
[2017-06-09] MEDS: DONEPEZIL 5 MG TABLET PO SCH (21:49)
[2017-06-09] MEDS: QUETIAPINE FUMARATE 25 MG TABLET PO SCH (21:49)
[2017-06-10 08:00] VITALS: BP 127/70
[2017-06-10] MEDS: LEVOTHYROXINE SODIUM 75 MCG TABLET PO SCH (08:20)
[2017-06-10] MEDS: ASPIRIN EC 81 MG TABLET.DR PO SCH (08:20)
[2017-06-10] MEDS: QUETIAPINE FUMARATE 25 MG TABLET PO SCH ×3 (08:20→21:39)
[2017-06-10] MEDS: FLUOXETINE HCL 20 MG CAPSULE PO SCH (08:21)
[2017-06-10] MEDS: BENAZEPRIL HCL 10 MG TABLET PO SCH (08:21)
[2017-06-10] MEDS: AMLODIPINE BESYLATE 5 MG TABLET PO SCH (08:21)
[2017-06-10] MEDS: BLOOD SUGAR DIAGNOSTIC 1 EACH STRIP IN SCH ×4 (08:22→21:30)
[2017-06-10] MEDS: INSULIN REGULAR, HUMAN 100 UNIT/ML 3 ML VIAL SQ PRN ×3 (08:31→21:38)
--- NOTE | 2017-06-10 14:50 | NUR ---
Discharge Planning: HERACLIO contacted [address] [place] [address]; to confirm pts return. SW was transferred to [facility] [place] from Admissions, a detailed message was left asking for a callback. HERACLIO will follow up to ensure pt is adequately and safely placed.
[2017-06-10 16:00] VITALS: BP 145/95
--- NOTE | 2017-06-10 19:30 | NUR ---
GPS RN NOTE, RECEIVED PATIENT AWAKE AND IN BED, NO S/S OR COMPLAINTS OF PAIN AT THIS TIME. PATIENT IS DISPLAYING NO S/S OF APPARENT DISTRESS AT THIS TIME. PATIENT BREATHING IS UNLABORED WITH EQUAL RISE AND FALL OF THE CHEST. PATIENT IS ALERT AND ORIENTED X 1-2 ON ROOM AIR WITH A SPO2 OF 99%. PATIENT IS KIS[place]ILI SPEAKING ONLY. PATIENT IS SELECTIVE WITH MEDICATION, ANXIOUS AT TIMES, CONFUSED, AND NEEDS REORIENTATION. PATIENT DENIES SUICIDE IDEATIONS AND HOMICIDAL IDEATIONS AT THIS TIME. PATIENT ASSISTED WITH TURNING AND REPOSITIONING Q2HR AND PRN FOR COMFORT AND CIRCULATION. PATIENT HAS NO NEEDS AT THIS TIME. PATIENT EDUCATED ON THE USE OF THE CALL DOLAN. PATIENT SIDE RAILS ARE UP X 2, BED IS LOCKED AND LOW, AND I WILL CONTINUE TO MONITOR THIS PATIENT Q 15 MIN WITH THE HELP OF STAFF.
[2017-06-10 20:30] VITALS: BP 95/69
--- NOTE | 2017-06-10 21:30 | NUR ---
GPS RN NOTE, PERFORMED ACCU CHECK ON PATIENT WITH A BLOOD SUGAR RESULT OF 156. GAVE 2 UNITS OF REGULAR INSULIN PER SLIDING SCALE. WILL CONTINUE TO MONITOR THIS PATIENT.
[2017-06-10] MEDS: ATORVASTATIN 10 MG TABLET PO SCH (21:39)
[2017-06-10] MEDS: DONEPEZIL 5 MG TABLET PO SCH (21:39)
[2017-06-11 08:00] VITALS: BP 137/78
[2017-06-11] MEDS: BLOOD SUGAR DIAGNOSTIC 1 EACH STRIP IN SCH ×4 (08:00→20:39)
[2017-06-11] MEDS: INSULIN REGULAR, HUMAN 100 UNIT/ML 3 ML VIAL SQ PRN ×2 (08:00→20:41)
--- NOTE | 2017-06-11 08:00 | NUR ---
[id number]: BLOOD SUGAR IS 150 MG /DL AND GAVE 2 UNITS OF REGULAR INSULIN
[2017-06-11] MEDS: LEVOTHYROXINE SODIUM 75 MCG TABLET PO SCH (08:03)
[2017-06-11] MEDS: QUETIAPINE FUMARATE 25 MG TABLET PO SCH ×3 (08:03→21:19)
[2017-06-11] MEDS: ASPIRIN EC 81 MG TABLET.DR PO SCH (08:04)
[2017-06-11] MEDS: FLUOXETINE HCL 20 MG CAPSULE PO SCH (08:04)
[2017-06-11] MEDS: BENAZEPRIL HCL 10 MG TABLET PO SCH (08:05)
[2017-06-11] MEDS: AMLODIPINE BESYLATE 5 MG TABLET PO SCH (08:06)
--- NOTE | 2017-06-11 12:23 | NUR ---
[id number]: BLOOD SUGAR IS 119 MG/DL AND NO INSULIN REQUIRED AT THIS TIME
[2017-06-11 16:14] VITALS: BP 120/59
--- NOTE | 2017-06-11 16:36 | NUR ---
Discharge Planning; SW faxed inquiry (face sheet, P&P, H&P and medication list) to [facility], [address] [place], [place] [address]; and fax # attention , Brigida Leblanc per pts daughter's request. Pt was also in agreement. SW will follow up to ensure pt is safely and adequately discharged.
--- NOTE | 2017-06-11 16:40 | NUR ---
[id number]: BLOOD SUGAR IS 122 MG/DL AND NO INSULIN REQUIRED AT THIS TIME
--- NOTE | 2017-06-11 19:27 | NUR ---
GPS/RN OPENING NOTES PATIENT IN BED, ALERT, ORIENTED X3, ABNLE TO VERBALIZE NEEDS, OBSERVE SITTING IN BED, READING A BOOK, CAN VERBALIZE NEEDS, RESPIATIONS EVEN AND UNLABORES, SKIN WARM TO TOUCH WITH GOOD EYE CONTACT. BED IN LOCK POSITION, SAFETY , EASURES PROVIDED, WILL MONITOR FOR ANY CHANGES. ENDORSEMENT RECEIVED FROM AM RN FOR ZOILA.
[2017-06-11 20:00] VITALS: BP 122/68
[2017-06-11] MEDS: ATORVASTATIN 10 MG TABLET PO SCH (21:19)
[2017-06-11] MEDS: DONEPEZIL 5 MG TABLET PO SCH (21:19)
--- NOTE | 2017-06-12 06:03 | NUR ---
219-A PATIENT ABLE TO SLEEP DURING THE NIGHT, COMPLIANT TO CARE, MONITORING FOR ANY CHANGES, BLOOD SUGAR CHECKED AND COVERAGE GIVEN, BED IN LOCKED POSITION, WILL ENDORSE TO AM RN FOR ZOILA.
[2017-06-12] MEDS: BLOOD SUGAR DIAGNOSTIC 1 EACH STRIP IN SCH ×5 (07:30→21:25)
[2017-06-12 08:00] VITALS: BP 141/75
[2017-06-12] MEDS: LEVOTHYROXINE SODIUM 75 MCG TABLET PO SCH (08:28)
[2017-06-12] MEDS: QUETIAPINE FUMARATE 25 MG TABLET PO SCH ×3 (08:29→21:03)
[2017-06-12] MEDS: ASPIRIN EC 81 MG TABLET.DR PO SCH (08:29)
[2017-06-12] MEDS: FLUOXETINE HCL 20 MG CAPSULE PO SCH (08:30)
[2017-06-12] MEDS: BENAZEPRIL HCL 10 MG TABLET PO SCH (08:30)
[2017-06-12] MEDS: AMLODIPINE BESYLATE 5 MG TABLET PO SCH (08:30)
[2017-06-12 16:00] VITALS: BP 100/54
[2017-06-12] MEDS: INSULIN REGULAR, HUMAN 100 UNIT/ML 3 ML VIAL SQ PRN ×2 (18:03→21:27)
[2017-06-12 20:05] VITALS: BP 101/61
[2017-06-12] MEDS: DONEPEZIL 5 MG TABLET PO SCH (21:02)
[2017-06-12] MEDS: ATORVASTATIN 10 MG TABLET PO SCH (21:03)
--- NOTE | 2017-06-12 21:30 | NUR ---
ACCUCHECK 144 MG/DL, 2 UNITS REGULAR INSULIN SC ADMINISTERED. HS SNACKS GIVEN/SANDWICH
[2017-06-13] MEDS: BLOOD SUGAR DIAGNOSTIC 1 EACH STRIP IN SCH ×4 (07:44→21:01)
[2017-06-13 08:00] VITALS: BP 127/70
[2017-06-13] MEDS: LEVOTHYROXINE SODIUM 75 MCG TABLET PO SCH (08:24)
[2017-06-13] MEDS: FLUOXETINE HCL 20 MG CAPSULE PO SCH (08:24)
[2017-06-13] MEDS: BENAZEPRIL HCL 10 MG TABLET PO SCH (08:24)
[2017-06-13] MEDS: QUETIAPINE FUMARATE 25 MG TABLET PO SCH ×3 (08:24→21:02)
[2017-06-13] MEDS: ASPIRIN EC 81 MG TABLET.DR PO SCH (08:24)
[2017-06-13] MEDS: AMLODIPINE BESYLATE 5 MG TABLET PO SCH (08:24)
--- NOTE | 2017-06-13 10:48 | NUR ---
Discharge Planning: HERACLIO followed up with Brigida Leblanc from the [facility], [address] [facility] [place], [place] [address]; and fax # to inquire regarding pts placement. Per Brigida, she is still working on the referral and will contact HERACLIO by today with an answer. HERACLIO will follow up to ensure pt is safely and adequately discharged.
--- NOTE | 2017-06-13 11:33 | NUR ---
Discharge Planning: HERACLIO received a message from Brigida Leblanc from the [facility], [address] [facility] [place] [address]; and fax # informing that pt was not accepted to the above named facility. No reason was provided. HERACLIO will follow up with pts daughter, Julio Cesar Levi to provide her with an update regarding pts discharge.
--- NOTE | 2017-06-13 11:46 | NUR ---
Discharge Planning: HERACLIO contacted Mercedes from [facility], [facility] [address] [facility] [address]; to provide her with an update regarding pts discharge. SW informed Mercedes that pt would be returning to their facility once she is ready and stable to discharge; which she agreed. HERACLIO also contacted pts daughter Julio Cesar Leiv, to inform her of pts discahrge. Pts daughter is in agreement with pt returning to the [facility]. SW will follow up to ensure pt is safely and adequately discharged.
[2017-06-13] MEDS: INSULIN REGULAR, HUMAN 100 UNIT/ML 3 ML VIAL SQ PRN ×2 (12:55→17:40)
--- NOTE | 2017-06-13 12:55 | NUR ---
GPS/RN-NOTES PATIENT BLOOD SUGAR WAS 182MG/DL, 3 UNITS OF R INSULIN GIVEN ORDERED.
[2017-06-13 16:00] VITALS: BP 125/68
--- NOTE | 2017-06-13 17:40 | NUR ---
GPS/RN-NOTES PATIENT BLOOD SUGAR WAS 172 MG/DL, 3 UNITS OF R INSULIN GIVEN ORDERED.
[2017-06-13 20:00] VITALS: BP 103/56
--- NOTE | 2017-06-13 20:40 | NUR ---
TEMAZEPAM 7.5 MG CAP 1 PO GIVEN.
[2017-06-13] MEDS: DONEPEZIL 5 MG TABLET PO SCH (21:02)
[2017-06-13] MEDS: ATORVASTATIN 10 MG TABLET PO SCH (21:05)
[2017-06-14] MEDS: BLOOD SUGAR DIAGNOSTIC 1 EACH STRIP IN SCH ×4 (07:49→21:30)
[2017-06-14 08:00] VITALS: BP 116/68
[2017-06-14] MEDS: QUETIAPINE FUMARATE 25 MG TABLET PO SCH ×3 (08:26→21:27)
[2017-06-14] MEDS: BENAZEPRIL HCL 10 MG TABLET PO SCH (08:26)
[2017-06-14] MEDS: AMLODIPINE BESYLATE 5 MG TABLET PO SCH (08:27)
[2017-06-14] MEDS: LEVOTHYROXINE SODIUM 75 MCG TABLET PO SCH (08:27)
[2017-06-14] MEDS: FLUOXETINE HCL 20 MG CAPSULE PO SCH (08:27)
[2017-06-14] MEDS: ASPIRIN EC 81 MG TABLET.DR PO SCH (08:27)
[2017-06-14 16:00] VITALS: BP 103/62
--- NOTE | 2017-06-14 19:30 | NUR ---
GPS RN NOTE, RECEIVED PATIENT AWAKE AND IN BED, NO S/S OR COMPLAINTS OF PAIN AT THIS TIME. PATIENT IS DISPLAYING NO S/S OF APPARENT DISTRESS AT THIS TIME. PATIENT BREATHING IS UNLABORED WITH EQUAL RISE AND FALL OF THE CHEST. PATIENT IS ALERT AND ORIENTED X 1-2 ON ROOM AIR WITH A SPO2 OF 99%. PATIENT IS AZERI SPEAKING ONLY. PATIENT IS SELECTIVE WITH MEDICATION, ANXIOUS AT TIMES, CONFUSED, AND NEEDS REORIENTATION. PATIENT DENIES SUICIDE IDEATIONS AND HOMICIDAL IDEATIONS AT THIS TIME. PATIENT ASSISTED WITH TURNING AND REPOSITIONING Q2HR AND PRN FOR COMFORT AND CIRCULATION. PATIENT HAS NO NEEDS AT THIS TIME. PATIENT EDUCATED ON THE USE OF THE CALL DOLAN. PATIENT SIDE RAILS ARE UP X 2, BED IS LOCKED AND LOW, AND I WILL CONTINUE TO MONITOR THIS PATIENT Q 15 MIN WITH THE HELP OF STAFF.
[2017-06-14 20:00] VITALS: BP 139/67
[2017-06-14] MEDS: ATORVASTATIN 10 MG TABLET PO SCH (21:27)
[2017-06-14] MEDS: DONEPEZIL 5 MG TABLET PO SCH (21:27)
--- NOTE | 2017-06-14 21:30 | NUR ---
GPS RN NOTE, PERFORMED ACCU CHECK ON PATIENT WITH A BLOOD SUGAR RESULT OF 171. GAVE 3 UNITS OF REGULAR INSULIN PER SLIDING SCALE. WILL CONTINUE TO MONITOR THIS PATIENT.
[2017-06-14] MEDS: INSULIN REGULAR, HUMAN 100 UNIT/ML 3 ML VIAL SQ PRN (21:32)
[2017-06-15] MEDS: BLOOD SUGAR DIAGNOSTIC 1 EACH STRIP IN SCH ×4 (07:51→22:10)
[2017-06-15 08:00] VITALS: BP 121/56
[2017-06-15] MEDS: ASPIRIN EC 81 MG TABLET.DR PO SCH (08:53)
[2017-06-15] MEDS: QUETIAPINE FUMARATE 25 MG TABLET PO SCH ×3 (08:53→21:01)
[2017-06-15] MEDS: AMLODIPINE BESYLATE 5 MG TABLET PO SCH (08:54)
[2017-06-15] MEDS: FLUOXETINE HCL 20 MG CAPSULE PO SCH (08:54)
[2017-06-15] MEDS: LEVOTHYROXINE SODIUM 75 MCG TABLET PO SCH (08:54)
[2017-06-15] MEDS: BENAZEPRIL HCL 10 MG TABLET PO SCH (08:55)
[2017-06-15] MEDS: INSULIN REGULAR, HUMAN 100 UNIT/ML 3 ML VIAL SQ PRN ×2 (12:13→22:12)
[2017-06-15 15:52] VITALS: BP 114/68
[2017-06-15 20:00] VITALS: BP 110/62
[2017-06-15] MEDS: ATORVASTATIN 10 MG TABLET PO SCH (21:01)
[2017-06-15] MEDS: DONEPEZIL 5 MG TABLET PO SCH (21:01)
[2017-06-16 08:00] VITALS: BP 133/68
[2017-06-16] MEDS: BLOOD SUGAR DIAGNOSTIC 1 EACH STRIP IN SCH ×4 (08:00→22:06)
[2017-06-16] MEDS: LEVOTHYROXINE SODIUM 75 MCG TABLET PO SCH (08:00)
[2017-06-16] MEDS: BENAZEPRIL HCL 10 MG TABLET PO SCH (08:00)
[2017-06-16] MEDS: ASPIRIN EC 81 MG TABLET.DR PO SCH (08:01)
[2017-06-16] MEDS: AMLODIPINE BESYLATE 5 MG TABLET PO SCH (08:01)
[2017-06-16] MEDS: QUETIAPINE FUMARATE 25 MG TABLET PO SCH ×3 (08:01→21:23)
[2017-06-16] MEDS: Fluoxetine 10 mg capsule PO SCH (08:02)
[2017-06-16 16:00] VITALS: BP 116/75
[2017-06-16 20:18] VITALS: BP 135/89
[2017-06-16] MEDS: DONEPEZIL 5 MG TABLET PO SCH (21:23)
[2017-06-16] MEDS: ATORVASTATIN 10 MG TABLET PO SCH (22:00)
[2017-06-16] MEDS: INSULIN REGULAR, HUMAN 100 UNIT/ML 3 ML VIAL SQ PRN (22:08)
--- NOTE | 2017-06-17 07:17 | NUR ---
RN GPS NOTES PT. REFUSED WEEKLY SKIN REASSESSMENT PICTURES, ENCOURAGED FOR SKIN REASSESSMENT, EXPLINED RISKS AND BENEFITS STILL REFUSED,
[2017-06-17 08:00] VITALS: BP 124/75
[2017-06-17] MEDS: BLOOD SUGAR DIAGNOSTIC 1 EACH STRIP IN SCH ×4 (08:15→22:06)
[2017-06-17] MEDS: ASPIRIN EC 81 MG TABLET.DR PO SCH (08:16)
[2017-06-17] MEDS: BENAZEPRIL HCL 10 MG TABLET PO SCH (08:16)
[2017-06-17] MEDS: Fluoxetine 10 mg capsule PO SCH (08:16)
[2017-06-17] MEDS: AMLODIPINE BESYLATE 5 MG TABLET PO SCH (08:17)
[2017-06-17] MEDS: LEVOTHYROXINE SODIUM 75 MCG TABLET PO SCH (08:17)
[2017-06-17] MEDS: QUETIAPINE FUMARATE 25 MG TABLET PO SCH ×3 (08:17→22:03)
[2017-06-17 16:00] VITALS: BP 132/76
--- NOTE | 2017-06-17 16:40 | NUR ---
Hand Method Lasting Machine Operator spoke with director surface transportation Noelle at [facility] [phone] to arrange transportation for patient who will be discharged on 06/18/17. Noelle stated that she would personally milk pickup driver patient at 1:00pm.
--- NOTE | 2017-06-17 16:43 | NUR ---
print binding and finishing worker contacted daughter Julio Cesar Levi [phone] to inform her that patient will be discharged on 06/18/17 and transportation was arranged with [facility]. SW notified daughter that pt will be picked up from hospital at 1:00pm by Noelle from [facility].
[2017-06-17] MEDS: INSULIN REGULAR, HUMAN 100 UNIT/ML 3 ML VIAL SQ PRN ×2 (17:06→22:14)
--- NOTE | 2017-06-17 19:25 | NUR ---
GPS RN NOTE, RECEIVED PATIENT AWAKE AND IN BED, NO S/S OR COMPLAINTS OF PAIN AT THIS TIME. PATIENT IS DISPLAYING NO S/S OF APPARENT DISTRESS AT THIS TIME. PATIENT BREATHING IS UNLABORED WITH EQUAL RISE AND FALL OF THE CHEST. PATIENT IS ALERT AND ORIENTED X 1-2 ON ROOM AIR WITH A SPO2 OF 99%. PATIENT IS AMHARIC SPEAKING ONLY. PATIENT IS SELECTIVE WITH MEDICATION, ANXIOUS AT TIMES, CONFUSED, AND NEEDS REORIENTATION. PATIENT DENIES SUICIDE IDEATIONS AND HOMICIDAL IDEATIONS AT THIS TIME. PATIENT ASSISTED WITH TURNING AND REPOSITIONING Q2HR AND PRN FOR COMFORT AND CIRCULATION. PATIENT HAS NO NEEDS AT THIS TIME. PATIENT EDUCATED ON THE USE OF THE CALL DOLAN. PATIENT SIDE RAILS ARE UP X 2, BED IS LOCKED AND LOW, AND I WILL CONTINUE TO MONITOR THIS PATIENT Q 15 MIN WITH THE HELP OF STAFF.
[2017-06-17 19:49] VITALS: BP 120/59
[2017-06-17] MEDS: DONEPEZIL 5 MG TABLET PO SCH (22:03)
[2017-06-17] MEDS: ATORVASTATIN 10 MG TABLET PO SCH (22:03)
--- NOTE | 2017-06-17 22:06 | NUR ---
GPS RN NOTE, PERFORMED ACCU CHECK ON PATIENT WITH A BLOOD SUGAR RESULT OF 134. GAVE 2 UNITS OF REGULAR INSULIN PER SLIDING SCALE. WILL CONTINUE TO MONITOR THIS PATIENT.
[2017-06-18] MEDS: LEVOTHYROXINE SODIUM 75 MCG TABLET PO SCH (07:55)
[2017-06-18] MEDS: BLOOD SUGAR DIAGNOSTIC 1 EACH STRIP IN SCH ×2 (07:55→12:03)
[2017-06-18 08:00] VITALS: BP 113/87
[2017-06-18] MEDS: ASPIRIN EC 81 MG TABLET.DR PO SCH (08:02)
[2017-06-18 08:03] VITALS: BP 113/87
[2017-06-18] MEDS: AMLODIPINE BESYLATE 5 MG TABLET PO SCH (08:03)
[2017-06-18] MEDS: BENAZEPRIL HCL 10 MG TABLET PO SCH (08:03)
[2017-06-18] MEDS: Fluoxetine 10 mg capsule PO SCH (08:03)
[2017-06-18] MEDS: QUETIAPINE FUMARATE 25 MG TABLET PO SCH ×2 (08:04→12:43)
[2017-06-18] MEDS: INSULIN REGULAR, HUMAN 100 UNIT/ML 3 ML VIAL SQ PRN (12:08)
--- NOTE | 2017-06-18 12:41 | NUR ---
Discharge Note: Patient will be discharged to [address] [facility] [address]. Via facility transportation. Patients daughter Julio Cesar Levi, has been notified and is agreeable with the discharge plan. Patient appears calm and cooperative. Patient denies suicidal and homicidal ideations. Patient will follow-up with magazine editor and psychiatrist at the facility. Facilitated info to IDT team who are in agreement with discharge arrangement. The multidisciplinary exitcare form was done, printed, signed, and given to the patient.
--- NOTE | 2017-06-18 14:30 | NUR ---
[id number]: PT IS 81 YEARS OLD FEMALE DISCHARGE TO [facility] [address] [place] [address] IN STABLE CONDITION. COMPLAINT WITH MEDICATIONS, COOPERATIVE, WITH TX PLANS. PT DENIES SI/HI AND INSTRUCTED TO GO TO THE CLOSEST ER IF DEVELOPING SI/HI. BEHAVIOR IMPROVED, PSYCHIATRIC TX PLANS MET, MEDICAL TX PLANS DEFERRED FOR CONTINUAL MONITORING. EDUCATED PT ABOUT AFTER CARE PLAN AND COPY PROVIDED. RETURNED PERSONAL BELONGINGS TO PATIENT. MEDICATIONS RECONCILED WITH DR. ARCHULETA AND NAEEM MANUEL. REPORT GIVEN TO ROSA AT [facility] FOR CONTINUITY OF CARE. PT SIGNED DISCHARGE PAPERWORK. PT LEFT VIA PRIVATE CAR ESCORTED BY STAFF.
== END 2017-06-18 14:30 | DRG 885 ==
LOC: ER 14:02 → GPS 17:06
PROVIDERS: ADMIT Psychiatry & Neurology Psychiatry; ATTEND Psychiatry & Neurology Psychiatry
DX: F25.1 Schizoaffective disorder, depressive type (principal); E44.0 Moderate protein-calorie malnutrition; E11.9 Type 2 diabetes mellitus without complications; F03.90 Unspecified dementia, unspecified severity, without behavioral disturbance, psychotic disturbance, mood disturbance, and anxiety; F29 Unspecified psychosis not due to a substance or known physiological condition; E03.9 Hypothyroidism, unspecified; E78.5 Hyperlipidemia, unspecified; I25.10 Atherosclerotic heart disease of native coronary artery without angina pectoris; I10 Essential (primary) hypertension; Z79.82 Long term (current) use of aspirin; Z79.84 Long term (current) use of oral hypoglycemic drugs; Z79.899 Other long term (current) drug therapy; Z73.6 Limitation of activities due to disability; E66.9 Obesity, unspecified; Z68.25 Body mass index [BMI] 25.0-25.9, adult
CPT/HCPCS: 36415; 80048-TC; 80053-TC; 80061-TC; 80076-TC; 80305; 81000-TC; 82962-TC; 85025-TC; 87081-TC; A4606; G0480; J1815; Z7610